=== PATIENT | male | born 1955 | race Caucasian/White ===

== ENCOUNTER 2023-11-05 10:48 | Emergency (ER) | payer MEDICARE ==
[~2023-11-05] VITALS: Ht 182.9 cm; Wt 98.0 kg
[2023-11-05] VITALS (9 sets, daily range): BP systolic 152–165; BP diastolic 82–100
[2023-11-05] MEDS ORDERED: NAPROXEN500 MG PO (15:10)
== END 2023-11-05 15:30 | disposition home or self-care (01) ==
LOC: ED 10:48
DX: S93.602A Unspecified sprain of left foot, initial encounter (principal); X50.0XXA Overexertion from strenuous movement or load, initial encounter; Y93.53 Activity, golf

== ENCOUNTER 2024-11-19 21:48 | Emergency (ER) | payer MEDICARE ==
[~2024-11-19] VITALS: Ht 182.9 cm; Wt 97.0 kg
[~2024-11-19 21:48] MED LIST: NAPROXEN500 MG PO
[2024-11-19] MEDS ORDERED: METHOCARBAMOL 1,000 MG/10 ML VIAL IV ONE (22:20)
[2024-11-19] MEDS ORDERED: KETOROLAC TROMETHAMINE 15 MG/ML SDV IV ONE (22:20)
[2024-11-19 22:35] LABS: BASO% 0.3 % (0-3); EOS% 2.7 % (0-8); HEMATOCRIT 40.7 % (39.0-50.0); IMMATURE GRANULOCYTES 0.1 % (0.0-5.0); LYMPH% 22.3 % (15-41); MEAN CELL VOLUME 95.3 fL CALC (80.0-100.0); MEAN CORPUSCULAR HGB 30.4 pG CALC (26.0-32.0); MEAN CORPUSCULAR HGB CONC 31.9 g/dL CAL (32.0-36.0); MONO% 9.1 % (2-13); NEUT# 4.88 thou/uL (1.82-7.42); NEUT% 65.5 % (42-76); RED BLOOD COUNT 4.27 mill/uL (4.70-6.10); RED CELL DISTRI WIDTH 12.2 % (11.5-15.5)
[2024-11-19 22:47] LABS: ALBUMIN 3.7 g/dL (3.2-5.0); BILIRUBIN, TOTAL 0.4 mg/dL (0.2-1.3); CREATININE 1.4 mg/dL (0.7-1.3); POTASSIUM 3.9 mmol/l (3.5-5.1); TOTAL PROTEIN 6.6 g/dL (6.3-8.2)
[2024-11-20 00:27] LABS: URINE BILIRUBIN - DIPSTICK Negative (NEGATIVE); URINE BLOOD DIPSTICK Moderate (NEGATIVE); URINE GLUCOSE - DIPSTICK Negative (NEGATIVE); URINE PROTEIN - DIPSTICK 30 mg/dL (NEG-TRACE)
[2024-11-20 00:46] LABS: URINE COLOR Yellow; URINE LEUK ESTERASE Moderate (NEGATIVE); URINE NITRITE - DIPSTICK Positive (Negative)
[2024-11-20 00:47] LABS: URINE BACTERIA MANY hpf; URINE EPITHELIAL CELLS MODERATE EPI/hpf (0-FEW); URINE KETONE Negative (NEGATIVE); URINE RBC 25-50 RBC/hpf (0-5); URINE WBC 50-100 WBC/hpf (0-5)
[2024-11-20] MEDS ORDERED: cefTRIAXone SODIUM 2 GM in SODIUM CHLORIDE 0.9% 100 ML IV ONE (01:05)
[2024-11-20] MEDS ORDERED: MORPHINE SULFATE 4 MG/ML VIAL IV ONE (01:05)
[2024-11-20] MEDS ORDERED: AZITHROMYCIN 250 MG/TAB PO ONE (01:05)
[2024-11-20] MEDS ORDERED: DICYCLOMINE HCL 10 MG/CAP PO ONE (01:05)
[2024-11-20] MEDS ORDERED: HYDROCO/APAP1 TA9 PO (01:54)
[2024-11-20] MEDS ORDERED: CEFDINIR300 MG PO (01:54)
[2024-11-20] MEDS ORDERED: DICYCLOMINE HCL20 MG PO (01:54)
[2024-11-20] MEDS ORDERED: ZOFRAN4 MG/TAB PO (01:54)
[2024-11-20 01:59] VITALS: BP 144/89
== END 2024-11-20 02:15 | disposition home or self-care (01) ==
LOC: ED 21:48
PROVIDERS: Internal Medicine
DX: N13.6 Pyonephrosis (principal); B96.20 Unspecified Escherichia coli [E. coli] as the cause of diseases classified elsewhere; N28.1 Cyst of kidney, acquired; I10 Essential (primary) hypertension; Z86.73 Personal history of transient ischemic attack (TIA), and cerebral infarction without residual deficits
CPT/HCPCS: J0696; J1100; J1885; J2800; Q9967